=== PATIENT | female | born 1935 | race African-American/Black ===

== ENCOUNTER 2018-03-03 18:54 | Inpatient (IN) | payer OTHER, MEDICARE ==
[~2018-03-03] VITALS: Ht 162.6 cm; Wt 69.9 kg
--- NOTE | 2018-03-03 19:33 | ED NEURO DEFICIT/STROKE ---
History of Present Illness General Chief Complaint: Fall Stated Complaint: BIBA FALL W/? NEURO DEFICITS Source: patient, family (PTS SON, DEAN), EMS Exam Limitations: clinical condition, poor historian Allergies Coded Allergies: Penicillins (Severe, RASH 03/03/18) Triage Note: PT BIBA FROM HOME. PT HAD A WITNESSED FALL AT HOME AT 1400. PT WAS ASSISTED UP FROM THE FLOOR BY HOME HEALTH AID. PT REPORTS R FRONTAL HEADACHE AFTER FALL. PT'S SON REPORTS SHE IS "NOT HERSELF". PA AT BEDSIDE FOR AN EVALUATION ON ARRIVAL. Triage Nurses Notes Reviewed? yes Onset: Afternoon Duration: changing over time, worse persistent since (per her son's opinion) Timing: single episode today New Weakness: LUE Vision Problem? No Impaired Ability: bed-ridden, weak Baseline: alert, oriented x 3 Associated Symptoms: sleepy, weakness LMP (ages 10-50): post menopausal HPI: 83-year-old female presents to the emergency department, brought in by ambulance. Information on patient given by EMS and patient's son, Dean. At approximately 2 PM today patient was residing at home, and the home health aide heard her fall from the other room. The fall was unwitnessed. The home health aide reports that she had walked into the bedroom and found the patient sitting on the floor laying back in between to closet doors that slide open. There were no obstacles witnessed around the area including rug, shoes, or other objects. Patient was not unconscious, she was awake and alert. There was no blood surrounding patient. She was complaining of pain in her upper back and also the right side of her head. After this happened patient was brought to the couch and was watching TV. The home health aide alerted patient's son about the fall and the patient's son came around 4:30 PM. As he was talking with patient he reports that she was slow to answer questions, although she was not slurring her speech, and she did understand her son's questions. She appeared to be a little bit more sluggish than typical. Son reports that patient's baseline is awake alert and oriented. She uses a cane and sometimes a walker to move around. He states that typically she is usually able to answer questions fairly quickly and the condition that he found her in was decreased from her baseline. At this time, the ambulance was called and the patient Was Brought in. Per the son, patient has no history of stroke, heart attack, or syncopal episode in the past. She is a type II diabetic and also has high blood pressure. She is not on any blood thinners. She typically wears dentures but was not wearing them at the time of the fall. (Damián Gentile) Vital Signs & Intake/Output Vital Signs & Intake/Output Vital Signs Date Time Temp Pulse Resp B/P B/P Pulse O2 O2 Flow FiO2 Mean Ox Delivery Rate 03/04 0649 98.7 73 20 156/64 93 Room Air 03/03 2308 Room Air 03/03 2245 98.8 61 14 140/70 92 03/03 2217 97.7 58 18 120/70 96 03/03 1859 97.8 56 16 162/74 97 Room Air ED Intake and Output 03/04 0000 03/03 1200 Intake Total 0 Output Total Balance 0 Intake, Oral 0 Patient 153 lb Weight Weight Bed scale Measurement Method Reconcile Medications Aspirin (Aspirin*) 81 MG TAB.CHEW 81 MG PO DAILY HEART HEALTH Atorvastatin Calcium 40 MG TABLET 40 MG PO 1700 HEART HEALTH Clonazepam 0.5 MG TABLET 1 TAB PO DAILY NEEDED anxiety (Reported) Dexlansoprazole (Dexilant) 60 MG CAP.DRLuisBP 1 CAP PO DAILY GERD (Reported) Metoprolol Tartrate 50 MG TABLET 1 TAB PO BID HTN (Reported) Nifedipine (Nifedipine ER) 30 MG TAB.ER.24 30 MG PO DAILY hypertension Sertraline HCl 50 MG TABLET 1 TAB PO DAILY Anxiety (Reported) (Levon QUINTEROS,Han Strickland) Past History Travel History Traveled to [place] past 21 day No Medical History Any Pertinent Medical History? 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 No (Damián Gentile) Surgical History Surgical History: non-contributory (Levon QUINTEROS,Han Strickland) Review of Systems Review of Systems Constitutional: Reports: see HPI. EENTM: Reports: no symptoms. Respiratory: Reports: no symptoms. Cardiovascular: Reports: no symptoms. GI: Reports: no symptoms. Genitourinary: Reports: no symptoms. Musculoskeletal: Reports: see HPI. Skin: Reports: no symptoms. Neurological/Psychological: Reports: headache, weakness. Hematologic/Endocrine: Reports: no symptoms. Immunologic/Allergic: Reports: no symptoms. All Other Systems: Reviewed and Negative (Damián Gentile) Physical Exam Physical Exam General Appearance: no apparent distress, alert, awake, comfortable Head: atraumatic, normal appearance Eyes: Left: abnormal EOM. Right: EOMI (rightward deviation). Bilateral: normal appearance, PERRL. Ears, Nose, Throat: hearing grossly normal Neck: limited range of motion (per baseline d/t arthritis), no midline tenderness Respiratory: normal breath sounds, chest non-tender, no respiratory distress Cardiovascular: regular rate/rhythm, normal peripheral pulses Gastrointestinal: soft, non-tender Extremities: normal range of motion Psychiatric: awake, alert, oriented x 3 Cranial Nerves: normal hearing, abnormal eye position, abnormal speech, gag reflex in tact, CN function difficult to assess secondary to patient lack of effort Motor/Sensory: 3/5 strength LUE, 5/5 strength RUE, 3/5 strength dorsiflexion of L great toe, no pronator drift appreciated Skin: intact, normal color, warm/dry Core Measures NIH Stroke Scale NIH Stroke Scale Response Value Level of Consciousness alert 0 LOC Questions answers both correctly 0 LOC Commands obeys both correctly 0 Best Gaze partial gaze palsy 1 Visual Duran no visual loss 0 Facial Paresis minor 1 Motor Arm - Left no drift 0 Motor Arm - Right no drift 0 Motor Leg - Left no drift 0 Motor Leg - Right no drift 0 Limb Ataxia no ataxia 0 Sensory normal 0 Best Language mild to moderate aphasia 1 Dysarthria mild/mod slurring words 1 Extinction and Inattention no neglect 0 Total 4 Sepsis Present: No Sepsis Focused Exam Completed? No (Damián Gentile) Core Measures CVA/TIA Diagnosis: Yes Date Last Known Well: 03/03/18 Time Last Known Well: 1400 Symptom Start Date: 03/03/18 Symptom Start Time: 1400 Reason tPA not ordered Medical Contraindication Swallow Evaluation Pass Swallow eval date 03/03/18 Swallow eval time 2100 (Levon QUINTEROS,Han Strickland) Progress Differential Diagnosis: Tapia's Palsy, electrolyte imbalance, encephalitis, hypoglycemia, intracranial Hem., intracranial mass/tumor, seizure disorder, stroke, subarachnoid Hem. Diagnostic Imaging: Viewed by Me: CT Scan. Discussed w/RAD: CT Scan. Initial ED EKG: normal sinus rhythm, rate (56) Hand-Off Endorsed To: Han Dos Santos MD Endorsed Time: 2003 Pending: CT, consult, labs Comments: 03/03/2018 8:01:26 PM Spoke with on-call neurologist Dr. rapp. Due to the unclear time frame patient is not a candidate for TPA at this time. Patient will get a CT angiogram of head and neck. Waiting on those results. (Preston SPEAR,Damián) Plan of Care: Orders Procedure Date/time Status Nothing by Mouth 03/04 B Active TROPONIN LEVEL 03/04 0900 Active EKG 03/04 0900 Active Change service to 03/04 0725 Active LIPID PANEL 03/04 0600 Active GLYCOSYLATED HGB 03/04 0600 Active CBC WITHOUT DIFFERENTIAL 03/04 06 Active BASIC ELECTROLYTES PLUS BUN&CR 03/04 0600 Active ECHOCARDIOGRAM 03/04 0600 Active TROPONIN LEVEL 03/04 0223 Complete EKG 03/04 0223 Active Turn and Reposition 03/04 0219 Active Skin Integrity Protocol 03/04 0219 Active Skin/Pressure Ulcer Assess (Sk 03/04 0219 Active XRY-LUMBAR SPINE ONE VIEW 03/04 UNK Active Change service to 03/04 UNK Active Lab Add-on Test 03/04 UNK Active Wound Care/Dressing 03/04 UNK Active PHYSICIAN CONSULT 03/04 UNK Active Weight 03/03 2252 Active Vital Signs 03/03 225 Active Teach/Educate 03/03 2252 Active Pain Treatment and Response 03/03 2252 Active Nutritional Intake, Monitor 03/03 2252 Active Isolation 03/03 225 Active Intake & Output 03/03 225 Active Patient Care Conference 03/03 2252 Active Activity/Ambulation 03/03 2252 Active Pathway - chart 03/03 2241 Active Pathway - chart 03/03 2240 Active Patient Data 03/03 2146 Active ED Holding Orders 03/03 2144 Active Admit to inpatient 03/03 2144 Active Vital Signs 03/03 2144 Active Code Status 03/03 2144 Active Straight Cath 04/24 2038 Active Intake & Output 03/03 1923 Active URINALYSIS 03/03 1917 Complete TROPONIN LEVEL 03/03 1917 Complete PARTIAL THROMBOPLASTIN TIME 03/03 1917 Complete PROTHROMBIN TIME 03/03 1917 Complete COMPREHENSIVE METABOLIC PANEL 03/03 1917 Complete CREATINE PHOSPHOKINASE 03/03 1917 Complete CBC WITHOUT DIFFERENTIAL 03/03 1917 Complete EKG 03/03 1917 Active TYPE & SCREEN (NOT X-MATCH) 03/03 1917 Complete FingerStick- Glucose 03/03 1909 Active SWALLOW EVALUATION 03/03 UNK Active PT Evaluate & Treat 03/03 UNK Active House Staff 03/03 UNK Active Occupational Tx Eval & Treat 03/03 UNK Active VTE Mechanical Prophylaxis 03/03 UNK Active Telemetry/Parking Cashier 03/03 UNK Active Precautions 03/03 UNK Active NIH Stroke Scale 03/03 UNK Active Activity/Ambulation 03/03 UNK Active Current Medications Sig/Min Start time Last Medication Dose Stop Time Status Admin Atorvastatin Calcium 40 MG 1700 03/04 1700 AC (Lipitor) Heparin Sodium 5,000 UNIT Q8 03/04 0600 AC 03/04 (Porcine) 0545 Sodium Chloride 1,000 ML Q13H 03/04 0100 AC 03/04 (Normal Saline 0.9%) 0159 Acetaminophen 650 MG Q6P PRN 03/03 2245 AC (Tylenol) Laboratory Tests 03/04/18 0647: Sodium Pending, Potassium Pending, Chloride Pending, Carbon Dioxide Pending, Anion Gap Pending, BUN Pending, Creatinine Pending, BUN/Creatinine Ratio Pending , Hemoglobin A1c Pending, Triglycerides Pending, Cholesterol Pending, LDL Cholesterol, Calc Pending, HDL Cholesterol Pending, Cholesterol/HDL Ratio Pending, CBC w Diff Pending, WBC Pending, RBC Pending, Hgb Pending, Hct Pending, MCV Pending, MCH Pending, MCHC Pending, RDW Pending, Plt Count Pending, MPV Pending 03/04/18 0302: Troponin I 0.02 03/03/18 2110: Urine Color YEL, Urine Clarity CLEAR, Urine pH 8.0, Ur Specific [place] 1.025, Urine Protein 100 H, Urine Ketones NEG, Urine Nitrite NEG, Urine Bilirubin NEG, Urine Urobilinogen 0.2, Ur Leukocyte Esterase NEG, Ur Microscopic SEDIMENT EXAMINED, Urine RBC 3-5, Urine WBC RARE, Ur Epithelial Cells FEW, Urine Mucus RARE, Urine Hemoglobin MOD H, Urine Glucose NEG 03/03/181918: Anion Gap 16, Estimated GFR 48 L, BUN/Creatinine Ratio 27.3 H, Glucose 111 H, Calcium 9.9, Total Bilirubin 0.8, AST 33, ALT 28, Alkaline Phosphatase 88, Creatine Kinase 295 H, Troponin I < 0.01, Total Protein 9.3 H, Albumin 5.0, Globulin 4.3 H, Albumin/Globulin Ratio 1.2, PT 12.0, INR 1.10, APTT 27, CBC w Diff NO MAN DIFF REQ, RBC 3.66 L, MCV 87.8, MCH 29.5, MCHC 33.6, RDW 16.6 H, MPV 8.5, Gran % 74.1, Lymphocytes % 11.3 L, Monocytes % 13.0 H, Eosinophils % 1.3, Basophils % 0.3, Absolute Granulocytes 3.3, Absolute Lymphocytes 0.5 L, Absolute Monocytes 0.6, Absolute Eosinophils 0.1, Absolute Basophils 0 Diagnostic Imaging: Viewed by Me: Radiology Read. Discussed w/RAD: Radiology Read. Radiology Impression: PATIENT: LARS ELLIS PRESENT AGE: 83 PATIENT ACCOUNT NO: [id number] : 36 LOCATION: [facility] ORDERING PHYSICIAN: Damián SPEAR SERVICE DATE: 03/03/18 EXAM TYPE : CAT - CT CERV SPINE WO IV CONTRAST; CT HEAD WO IV CONTRAST EXAMINATION: CT OF THE HEAD AND CERVICAL SPINE WITHOUT CONTRAST CLINICAL INFORMATION: FALL, R/O CVA COMPARISON: None. TECHNIQUE: Contiguous axial imaging was performed from the skull base to vertex. Soft tissue and bony algorithms were evaluated. Coronal reformatted images were obtained on the technologist's workstation. Following this, multiple serial thin slice helical CT scan images through the cervical spine were obtained. Soft tissue and bony algorithms were evaluated. Coronal and sagittal reformatted images were obtained on the technologist workstation. DLP: 913 mGy cm FINDINGS: Head CT: The ventricles are normal in size and symmetry. There is no evidence of acute intracranial hemorrhage or territorial infarction. No abnormal mass-effect or midline shift is seen. Parada to white matter differentiation is well preserved. No extra-axial fluid collections are identified. Mild age-related periventricular white matter changes. The osseous structures and soft tissues are normal. The mastoid air cells and visualized portions of the paranasal sinuses are well-aerated. Cervical spine CT: No prevertebral soft tissue swelling is appreciated. Mild straightening of the normal cervical lordosis. Otherwise the bones are in normal anatomic alignment with no acute fracture or spondylolisthesis. Vertebral body heights are preserved. Extensive multilevel degenerative changes are seen with loss of disc height at multiple levels with prominent osteophyte formation more so at 6/7 and C7/T1. Dense sclerotic degenerative changes are seen in the posterior elements. Visualized airway and lung apices are unremarkable. Visualized thyroid gland unremarkable. IMPRESSION: Head CT: Age-related changes but no acute abnormality seen. No intracranial hemorrhage or obvious territorial infarction. C-spine: Extensive multilevel degenerative changes but no acute fracture or spondylolisthesis. DICTATED BY: Иван Iniguez MD DATE/TIME DICTATED:2010 [facility] UNDERWRITER:BONNIE DATE/TIME TRANSCRIBED:03/03/182010 CONFIDENTIAL, DO NOT COPY WITHOUT APPROPRIATE AUTHORIZATION. <Electronically signed in Other Vendor System> SIGNED BY: Иван Iniguez MD 03/03/182019 (Levon QUINTEROS,Han Strickland) Departure Departure Condition: Stable Departure Forms: Customer Survey General Discharge Information (Damián Gentile) Departure Disposition: STILL A PATIENT Clinical Impression Primary Impression: TIA (transient ischemic attack) Prescriptions: Current Visit Scripts Atorvastatin Calcium 40 MG PO 1700 #30 TAB Aspirin (Aspirin*) 81 MG PO DAILY #30 TAB Nifedipine (Nifedipine ER) 30 MG PO DAILY #30 TAB Admission Note Spoke With: Cassie Lopez MD Documentation of Exam: Documentation of any treatments & extenuating circumstances including Concerns Regarding Discharge (functional status, medication knowledge or non-compliance, living conditions, etc.) that warrant an admission rather than observation: [IV hydration, family states that the last time she had symptoms similar to this she was dehydrated, neurology consultation, physical therapy consultation, telemetry monitoring to evaluate for potential dysrhythmia] PA/EPIDEMIOLOGY INVESTIGATOR Co-Sign Statement Statement: ED Attending supervision documentation- [X] I saw and evaluated the patient. I have also reviewed all the pertinent lab results and diagnostic results. I agree with the findings and the plan of care as documented in the PA's/EPIDEMIOLOGY INVESTIGATOR's documentation. [X] I have reviewed the ED Record and agree with the PA's/EPIDEMIOLOGY INVESTIGATOR's documentation. [] Additions or exceptions (if any) to the PAs/EPIDEMIOLOGY INVESTIGATOR's note and plan are summarized below: [See above note] (Levon QUINTEROS,Han Strickland) ED Attending Observation Initial Observation Note: I have seen and personally examined LARS ELLIS on 03/03/18 at 2000. I agree with the current emergency department documentation. The disposition (admission or discharge) is uncertain at this time, she needs a period of observation for the following reason(s): The ED Nurse caring for this patient has been personally informed as to what the patient is being observed for. (Preston SPEAR,Damián)
[2018-03-03 19:46] LABS: ABSOLUTE BASOPHIL COUNT 0 /CUMM (0.0-0.2); ABSOLUTE EOSINOPHIL COUNT 0.1 /CUMM (0.0-0.7); ABSOLUTE GRANULOCYTE CT 3.3 /CUMM (1.4-6.5); ABSOLUTE LYMPH COUNT 0.5 /CUMM (1.2-3.4); ABSOLUTE MONOCYTE COUNT 0.6 /CUMM (0.10-0.60); BASOPHIL % 0.3 % (0.0-2.0); EOSINOPHIL % 1.3 % (0-5); GRANULOCYTE % 74.1 % (42.2-75.2); HEMATOCRIT 32.1 % (37-47); MEAN CORPUSCULAR HGB 29.5 PG (27.0-31.0); MEAN CORPUSCULAR HGB CONC 33.6 G/DL (33.0-37.0); MEAN CORPUSCULAR VOLUME 87.8 FL (81.0-99.0); MEAN PLATELET VOLUME 8.5 FL (7.4-10.4); PLATELET COUNT 139 /CUMM (130-400); RBC DISTRIBUTION WIDTH 16.6 % (11.5-14.5); RED BLOOD CELL CT 3.66 /CUMM (4.20-5.40); WHITE BLOOD CELL COUNT 4.4 /CUMM (4.8-10.8)
[2018-03-03 19:49] LABS: PTT 27 SEC (25-37)
--- NOTE | 2018-03-03 20:20 | CT SCAN REPORT ---
EXAMINATION: CT OF THE HEAD AND CERVICAL SPINE WITHOUT CONTRAST CLINICAL INFORMATION: FALL, R/O CVA COMPARISON: None. TECHNIQUE: Contiguous axial imaging was performed from the skull base to vertex. Soft tissue and bony algorithms were evaluated. Coronal reformatted images were obtained on the technologist's workstation. Following this, multiple serial thin slice helical CT scan images through the cervical spine were obtained. Soft tissue and bony algorithms were evaluated. Coronal and sagittal reformatted images were obtained on the technologist workstation. DLP: 913 mGy cm FINDINGS: Head CT: The ventricles are normal in size and symmetry. There is no evidence of acute intracranial hemorrhage or territorial infarction. No abnormal mass-effect or midline shift is seen. Parada to white matter differentiation is well preserved. No extra-axial fluid collections are identified. Mild age-related periventricular white matter changes. The osseous structures and soft tissues are normal. The mastoid air cells and visualized portions of the paranasal sinuses are well-aerated. Cervical spine CT: No prevertebral soft tissue swelling is appreciated. Mild straightening of the normal cervical lordosis. Otherwise the bones are in normal anatomic alignment with no acute fracture or spondylolisthesis. Vertebral body heights are preserved. Extensive multilevel degenerative changes are seen with loss of disc height at multiple levels with prominent osteophyte formation more so at 6/7 and C7/T1. Dense sclerotic degenerative changes are seen in the posterior elements. Visualized airway and lung apices are unremarkable. Visualized thyroid gland unremarkable. IMPRESSION: Head CT: Age-related changes but no acute abnormality seen. No intracranial hemorrhage or obvious territorial infarction. C-spine: Extensive multilevel degenerative changes but no acute fracture or spondylolisthesis.
--- NOTE | 2018-03-03 20:39 | CT SCAN REPORT ---
EXAMINATION: CT ANGIOGRAM NECK WITH CONTRAST CT ANGIOGRAM BRAIN WITH CONTRAST CLINICAL INFORMATION: Left arm weakness to rule out occlusion COMPARISON: Head CT performed earlier the same day. TECHNIQUE: Test bolus sequences followed by intravenous administration 95 mL of Optiray 320. Helical imaging was performed in the axial plane from the thoracic inlet to the skull vertex. Delayed postcontrast imaging of the head was also performed. The data was processed at the lab animal technologist workstation for generation of MIP sequences. Angled MIPs and volume rendered reformatted images were also generated at an offline 3D workstation. Stenoses are assessed in accordance with NASCET criteria unless otherwise indicated. FINDINGS: BRAIN: hemorrhage, hydrocephalus, extra-axial surface collection, midline shift, or other herniation pattern. Parada to white matter differentiation is diffusely maintained without evidence of an evolved acute territorial infarct. The basilar cisterns are preserved. No significant soft tissue abnormality. No acute osseous abnormality. The paranasal sinuses and the mastoid air cells are well-aerated. CERVICAL SOFT TISSUES AND LUNG APICES: No significant soft tissue findings within the neck. The imaged upper lungs are clear. Advanced cervical spondylosis. 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 Left-sided uncovertebral joint hypertrophy and hypertrophic facet arthropathy result in severe left-sided bony foraminal stenosis at C5-C6 and C6-C7. There is also severe right-sided bony foraminal stenosis at C3-C4, C4-C5 and C6-C7. NECK CTA: There is a classic 3 vessel configuration of the aortic arch. Proximal arch vessels are non-stenotic. The vertebral arteries are codominant. No significant ostial stenosis is visualized on either side. Both vertebral arteries are widely patent throughout their extracranial cervical course. Both common and internal carotid arteries are normal in course and caliber. There is mild atherosclerotic calcification of the carotid bifurcations bilaterally without significant stenosis. BRAIN CTA: There is normal opacification of major intracranial arteries. No focal flow-limiting stenosis, discrete proximal large artery occlusion, or saccular intradural aneurysm is identified. Timing of the contrast bolus allows assessment of the major dural venous sinuses, which all opacify normally. IMPRESSION: - No acute arterial occlusions and no significant arterial stenoses within the head or neck. - No acute intracranial findings. - Advanced cervical spondylosis. 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 Left-sided uncovertebral joint hypertrophy and hypertrophic facet arthropathy result in severe left-sided bony foraminal stenosis at C5-C6 and C6-C7. There is also severe right-sided bony foraminal stenosis at C3-C4, C4-C5 and C6-C7. Findings discussed with Dr. Gonzalez at 8:30 PM on 03/03/2018.
--- NOTE | 2018-03-03 21:53 | History & Physical ---
Nicole Gomez MD 03/03/18 2106: General Information and HPI MD Statement: I have seen and personally examined LARS GUTIERREZ and documented this H&P. The patient is a 83 year old F who presented with a patient stated chief complaint of [unwitnessed fall, confusion]. Source of Information: patient, family, EMS Exam Limitations: not alert/orientated, confusion History of Present Illness: Patient is an 83-year-old female with past medical history of hypertension, hyperlipidemia, diabetes, urinary incontinence, arthritis, ankylosing spondylitis who was brought in by ambulance to the [place] ED from home after having an unwitnessed fall. Patient was drowsy and confused on interview. Majority of the history was obtained from patient's son whom she lives with and medical record. It was reported that patient today at approximately 2 PM this afternoon patient was in her room when she had an unwitnessed fall. Patient states that she does not remember exactly what happened however believes that she was standing up at that time and attempting to change her clothes. The fall was heard by her home health aide who reports that when she walked into the bedroom she found the patient sitting on the floor between 2 closet doors. Reportedly no objects were near the patient that she may have tripped on. Patient reports that she hit her head however denies any loss of consciousness. No loss of bed noted. Patient complained of upper back and right sided head pain. Patient was then moved to couch. Patient's son was informed of the event and he came to check on the patient at [facility] 4:30PM at which time he noted that the patient was below her baseline and was responding slowly to questions. Denies slurred speech , facial droop, seizure like activity. Patient currently denies chest pain, palpitations, lightheadedness, dizzinessness, visual disturbances. Per son, patient has not had a stroke/TIA in the patst. PMH: HTN, DM (patient reports she is not on any meds currently), Arthritis, HLD PSH: SH: patient lives with her son, uses a cane/walker to ambulate (limited ambulation due to arthritis), has 24 hour home nursing care, former smoker (quit 6-7 years ago) Allergies/Medications Home Med list Aspirin (Aspirin*) 81 MG TAB.CHEW 81 MG PO DAILY [facility] Atorvastatin Calcium 40 MG TABLET 40 MG PO 1700 [facility]ART [facility] Clonazepam 0.5 MG TABLET 1 TAB PO DAILY NEEDED anxiety (Reported) Dexlansoprazole (Dexilant) 60 MG JAMES.BP 1 CAP PO DAILY GERD (Reported) Metoprolol Tartrate 50 MG TABLET 1 TAB PO BID HTN (Reported) Nifedipine (Nifedipine ER) 30 MG TAB.ER.24 30 MG PO DAILY hypertension Sertraline HCl 50 MG TABLET 1 TAB PO DAILY Anxiety (Reported) Past History Travel History Traveled to [place] past 21 day No Medical History Neurological: NONE EENT: NONE, dentures Cardiovascular: hypertension, hyperlipidemia Respiratory: NONE Gastrointestinal: GERD Hepatic: NONE Renal: urinary incontinence Musculoskeletal: ARTHRITIS per son 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 Home Review of Systems Review of Systems Constitutional: Reports: see HPI (limited due to clinical state), weakness. EENTM: Reports: no symptoms. Cardiovascular: Reports: no symptoms. Respiratory: Reports: no symptoms. GI: Reports: no symptoms. Genitourinary: Reports: no symptoms. Musculoskeletal: Reports: back pain. Neurological/Psychological: Reports: weakness. Exam & Diagnostic Data Last 24 Hrs of Vital Signs/I&O Vital Signs Date Time Temp Pulse Resp B/P B/P Pulse O2 O2 Flow FiO2 Mean Ox Delivery Rate 03/03 2308 Room Air 03/03 2245 98.8 61 14 140/70 92 03/03 2217 97.7 58 18 120/70 96 03/03 1859 97.8 56 16 162/74 97 Room Air Intake & Output 03/04 0800 03/04 0000 03/03 1600 Intake Total 0 Output Total Balance 0 Intake, Oral 0 Patient 153 lb Weight Weight Bed scale Measurement Method Physical Exam General Appearance Cooperative, drowsy, oriented x 2, to person and place Skin tear along gluteal cleft Skin Temp/Moisture Exam: Warm/Dry Sepsis Skin Exam (color): Normal for Ethnicity HEENT Atraumatic, PERRLA, EOMI, Mucous Membr. moist/pink Neck Supple, No JVD, +2 Carotid Pulse wo Bruit Cardiovascular Regular Rate, Normal S1, Normal S2, No Murmurs Lungs Clear to Auscultation, Normal Air Movement Abdomen Normal Bowel Sounds, Soft, No Tenderness Neurological Normal Speech, Normal Tone, Sensation Intact, Cranial Nerves 3-12 NL, strength in left upper extremity and left lowe extremity 4/5, [id number] test - slow Extremities No Clubbing, No Cyanosis, No Edema, Normal Pulses, No Tenderness/ Swelling Last 24 Hrs of Labs/Zachery: Laboratory Tests 03/03/182109: Urine Color YEL, Urine Clarity CLEAR, Urine pH 8.0, Ur Specific [place] 1.025, Urine Protein 100 H, Urine Ketones NEG, Urine Nitrite NEG, Urine Bilirubin NEG, Urine Urobilinogen 0.2, Ur Leukocyte Esterase NEG, Ur Microscopic SEDIMENT EXAMINED, Urine RBC 3-5, Urine WBC RARE, Ur Epithelial Cells FEW, Urine Mucus RARE, Urine Hemoglobin MOD H, Urine Glucose NEG 03/03/18 1919: Anion Gap 16, Estimated GFR 48 L, BUN/Creatinine Ratio 27.3 H, Glucose 111 H, Calcium 9.9, Total Bilirubin 0.8, AST 33, ALT 28, Alkaline Phosphatase 88, Creatine Kinase 295 H, Troponin I < 0.01, Total Protein 9.3 H, Albumin 5.0, Globulin 4.3 H, Albumin/Globulin Ratio 1.2, PT 12.0, INR 1.10, APTT 27, CBC w Diff NO MAN DIFF REQ, RBC 3.66 L, MCV 87.8, MCH 29.5, MCHC 33.6, RDW 16.6 H, MPV 8.5, Gran % 74.1, Lymphocytes % 11.3 L, Monocytes % 13.0 H, Eosinophils % 1.3, Basophils % 0.3, Absolute Granulocytes 3.3, Absolute Lymphocytes 0.5 L, Absolute Monocytes 0.6, Absolute Eosinophils 0.1, Absolute Basophils 0 Diagnostic Data CXR Results No evidence of acute disease. Other Results Head CT: Age-related changes but no acute abnormality seen. No intracranial hemorrhage or obvious territorial infarction. C-spine: Extensive multilevel degenerative changes but no acute fracture or spondylolisthesis. Head and Neck CTA: - No acute arterial occlusions and no significant arterial stenoses within the head or neck. - No acute intracranial findings. - Advanced cervical spondylosis. 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 Left-sided uncovertebral joint hypertrophy and hypertrophic facet arthropathy result in severe left-sided bony foraminal stenosis at C5-C6 and C6-C7. There is also severe right-sided bony foraminal stenosis at C3-C4, C4-C5 and C6-C7. Assessment/Plan Assessment: Patient is an 83-year-old female with past medical history of hypertension, hyperlipidemia, diabetes, urinary incontinence, arthritis, ankylosing spondylitis who was brought in by ambulance to the [place] ED from home after having an unwitnessed fall. Patient will be admitted to the telemetry unit for management of followin. Suspected CVA/TIA * Monitor on telemetry * Neurochecks q4h * Serial EKG and troponins * Echocardiogram * MRI in a.m. * PT/OT evaluation * Formal swallow evaluation (patient passed bedside swallow) * Lipid profile in a.m. * Continue aspirin * High-dose statin * Neuro consult 2. Unwitnessed Fall * montior on telemetry * ECHO * Fall precautions * PT/OT * Wound consult for gluteal cleft superficial injury 3. Dehydration BUN: 30, Cr: 1.1 (no baseliine to compare available) * Gentle IV hydration with IV NS @75cc/hr * Repeat BUN/Cr in AM Chronic conditions: DM, HTN, HLD, Urinary Incontinence * Patient's son will bring medication list in AM * hold losartan for now DVT: HEparin SQ Code: Full code Diet: NPO As Ranked By This Provider Problem List: 1. TIA (transient ischemic attack) 2. Unwitnessed fall Core Measures/Misc (07/27) Acute Coronary Syndrome ACS Diagnosis: No Congestive Heart Failure Congestive Heart Failure Diagnosis No Cerebrovascular Accident CVA/TIA Diagnosis: Yes Date Last Known Well: 03/03/18 Time Last Known Well: 1400 Symptom Start Date: 03/03/18 Symptom Start Time: 1400 Swallow Evaluation Pass VTE (View Protocol) VTE Risk Factors Age>40 No Mechanical VTE Prophylaxis d/t N/A MechProphylax Ordered No VTE Pharm Prophylaxis d/t NA PharmProphylax ordered Sepsis (View protocol) Sepsis Present: No Albalwai,Afaf 03/04/18 0053: General Information and HPI Allergies/Medications Allergies: Coded Allergies: Penicillins (Severe, RASH 03/03/18) Resident Review Statement Resident Statement: examined this patient, discussed with creative services intern, agreed with creative services intern, discussed with family, reviewed EMR data (avail), discussed with nursing , discussed with case mgmt, reviewed images Other Findings: Mrs. Gutierrez is an 83 yo women with PMHx. of HTN, DM, Arthritis presented to ED with a c/o incoherent, slow after unwittnessed fall, found on the floor with a head trauma reported. Detailed Hx. as above. Vitals, examination, labs and imaging as above. Will admitt the patient to telemetry, SERIAL TROPONIN AND ekg, MRI head, pelvic x-ray, lipid profile, ASA, statin, serial neurochecks, echocardiogram, gentle hydration, neurology consult, pt/ot/ official swallow evaluation. Please confirm medications list. DVT ppx. SC heparin, FC Cassie Lopez 03/04/18 0057: Attending MD Review Statement Attending Statement Attending MD Statement: examined this patient, discuss w/resident/PA/CERAMIC RESTORER, agreed w/resident/PA/CERAMIC RESTORER, reviewed EMR data (avail), reviewed images, amended to note Attending Assessment/Plan: CC: Fall PMH: DM : Currently not on medications, arthritis, HTN, HLD Patient was brought in ER through EMS for not being herself after the fall. Patient had healthcare aide at home she heard a bang on the floor, then she found patient lying on the floor near closet. She may have hit her head, she complains of right-sided pain. Patient does not recall the fall, and it was unwitnessed. History is mostly obtained from patient's son. Health aide helped her to the living room and patient was sitting on the couch for some time and son came back home and saw that patient was not herself, still low and sluggish to respond, incoherent so he decided to call EMS. Currently patient does not endorse any complaint other than mild headache on the right side. There is no history of loss of consciousness or seizure-like activity, no open wounds. Patient states that she has not been ambulating much around the house, probably secondary to arthritis, she uses walker. According to son similar episode happened to her in the past when she was evaluated in hospital and it was found out that she was dehydrated. This time some of the health aide did not notice any neurological weakness or slurred speech. Vitals: Afebrile, t 97.8, pulse 56, RR 16, blood pressure 162/74, saturating 97% on room air. On exam: Slow and sluggish to respond, responds appropriately, alert, oriented in person, always that she is in hospital but does not recall the name, not oriented in time, follows all instructions, pupils equal round reactive bilaterally, no nystagmus, no neglect or gaze abnormality, cranial nerves intact , left upper extremity strength 4/5, slow for cerebellar reflexes on the left side but no obvious past-pointing or tremors, left lower extremity strength is 4 +/5 as compared to right lower extremity, normal strength right upper extremity, sensory exam unremarkable. Cooperative, no acute distress, neck supple, JVD normal, no lymphadenopathy, mucosa dry, no dependent edema, no obvious skin rashes or inflammation CVS: S1-S2, RRR. RS: Clear to auscultate bilaterally. Abdomen: Soft, NT, ND, bowel sounds present. Laceration in interagluteal fold, minimal bleeding. No evidence of infection CT head without IV contrast, CT cervical spine Age-related changes but no acute abnormality seen. No intracranial hemorrhage or obvious territorial infarction. Extensive multilevel degenerative changes but no acute fracture or spondylolisthesis. CTA head and neck - No acute arterial occlusions and no significant arterial stenoses within the head or neck. - No acute intracranial findings. - Advanced cervical spondylosis. Assessment and plan 83-year-old female was brought in ER after being slow and sluggish the recent unwitnessed fall. Healthcare aide noticed a bang, when she went to check on patient she was on the floor, no loss of consciousness, no seizure-like activity , she hit her head on the right side. Aide did not notice any neurological weakness, no slurred speech and she helped to sit her on the couch for some time , when son came home he saw patient being more sluggish, slow to respond, confused so she was brought in ER. No obvious neurological weakness was noticed by some either, speech was slower than her usual not slurred. In ER she was found to have left upper extremity weakness, unknown duration 4/[address] does not show any acute stroke or occlusive thrombus but lacking or strokes cannot be excluded. Patient's symptoms could be secondary to dehydration as well. We will consult neurology, MRI is suggested by them, get CVA workup. Patient's medications need to be confirmed in the morning. Patient has urinary incontinence. She has buttock wound in the gluteal fold, minimally bleeding, no evidence of infection + Suspected CVA + Dehydration + Fall - Admit to telemetry - Continuous telemetry monitoring - Serial troponin and EKG - MRI brain if suggested by neurology - 2-D echocardiogram in a.m. - DVT prophylaxis - Obtain lipid profile - Continue aspirin 81 daily and atorvastatin 40 mg daily - Neurology consult - Serial neuro checks - OT PT evaluation - Continue gentle hydration normal saline at 75 mL per hour - Hold losartan, metoprolol (her home medications, need to confirm in the morning and restart if no acute stroke) - Check HbA1c - Wound care consult
--- NOTE | 2018-03-03 22:17 | RADIOLOGY REPORT ---
EXAMINATION: PORTABLE CHEST 1 VIEW CLINICAL INFORMATION: Pneumonia. Short of breath.. COMPARISON: No recent pertinent prior studies are available for comparison. TECHNIQUE: Portable frontal view of the chest was obtained. FINDINGS: The lungs are well expanded. No focal infiltrate, effusion, edema, or pneumothorax. Cardiac and mediastinal silhouettes are within normal limits for technique. No acute bony abnormality seen. Degenerative changes in the spine and shoulders. IMPRESSION: No evidence of acute disease.
[2018-03-03 22:45] VITALS: BP 140/70
--- NOTE | 2018-03-04 00:58 | Admission Certification ---
Admission Certification Certification Statement - As attending physician, I certify that at the time of - admission, based on clinical presentation, severity of - symptoms, need for further diagnostic testing and - therapeutic interventions, and risk of adverse outcomes - without in-hospital treatment, in my clinical assessment, - this patient requires an acute hospital stay for a minimum - of two nights or longer. I have also considered psychsocial - factors such as support system, advanced age, financial - issues, cognitive issues, and failed out-patient treatments, - past re-admission history, safety of patient, and lack of - compliance as applicable. Specific rationale supporting this admission is: CVA
[2018-03-04 06:49] VITALS: BP 156/64
--- NOTE | 2018-03-04 07:50 | PN- Housestaff ---
Subjective Follow-up For: Fall C spine fracture Tele-Events Since Last Visit: Normal sinus rhythm HR 60s-70s Subjective: Patient was seen and examined at that time. She was resting in bed. She had no acute events overnight. She is complaining of neck stiffness and neck pain. Although she is slow to answer questions she does respond appropriately. She has no other complaints, and denies any headaches, tingling, numbness, chest pain, shortness of breath. Review of Systems Constitutional: Reports: no symptoms. EENTM: Reports: no symptoms. Cardiovascular: Reports: no symptoms. Respiratory: Reports: no symptoms. Gastrointestinal: Reports: no symptoms. Genitourinary: Reports: no symptoms. Musculoskeletal: Reports: neck pain. Skin: Reports: no symptoms. Objective Last 24 Hrs of Vital Signs/I&O Vital Signs Date Time Temp Pulse Resp B/P B/P Pulse O2 O2 Flow FiO2 Mean Ox Delivery Rate 03/04 0649 98.7 73 20 156/64 93 Room Air 03/03 2308 Room Air 03/03 2245 98.8 61 14 140/70 92 03/03 2217 97.7 58 18 120/70 96 03/03 1859 97.8 56 16 162/74 97 Room Air Intake & Output 03/04 0800 03/04 0000 03/03 1600 Intake Total 300 0 Output Total Balance 300 0 Intake, IV 300 Intake, Oral 0 Patient 153 lb Weight Weight Bed scale Measurement Method Physical Exam General Appearance: Alert, Cooperative, No Acute Distress, oriented to person and place but not time Skin: long superficial abrasion on the lower back extending into the gluteal cleft Skin Temp/Moisture Exam: Warm/Dry Sepsis Skin Exam (color): Normal for Ethnicity Neck: tender to palpation, limited range of motion Cardiovascular: Regular Rate, Normal S1, Normal S2 Lungs: Clear to Auscultation, Normal Air Movement Abdomen: Normal Bowel Sounds, Soft, No Tenderness Neurological: LUE 4+/5 strength, RLE 4/5 however this is chronic Extremities: No Clubbing, No Cyanosis, No Edema Current Medications: Current Medications Sig/Min Start time Last Medication Dose Route Stop Time Status Admin Acetaminophen 650 MG Q6P PRN 03/03 224 AC PO Aspirin 325 MG ONCE ONE 03/03 2145 DC PO 03/03 2146 Atorvastatin Calcium 40 MG 1700 03/04 1700 AC PO Heparin Sodium 5,000 UNIT Q8 03/04 0600 AC 03/04 (Porcine) [place] 0545 Ondansetron HCl 0 .STK-MED ONE 03/03 2107 DC .ROUTE Ondansetron HCl 4 MG ONCE ONE 03/03 2100 DC 03/03 IV 03/03 Sodium Chloride 1,000 ML Q13H 03/04 0100 AC 03/04 IV 0159 Sodium Chloride 1,000 ML BOLUS ONE 03/03 2100 DC 03/03 IV 03/03 Last 24 Hrs of Lab/Zachery Results Last 24 Hrs of Labs/Mics: Laboratory Tests 03/04/18 0950: Troponin I 0.02 03/04/18 0647: Anion Gap 15, Estimated GFR 39 L, BUN/Creatinine Ratio 20.8, Hemoglobin A1c 5.0 , Triglycerides 67, Cholesterol 192, LDL Cholesterol, Calc 91, HDL Cholesterol 88 H, Cholesterol/HDL Ratio 2, CBC w Diff NO MAN DIFF REQ, RBC 3.05 L, MCV 87.8, MCH 30.3, MCHC 34.5, RDW 16.1 H, MPV 8.9, Gran % 69.9, Lymphocytes % 10.6 L, Monocytes % 17.9 H, Eosinophils % 1.4, Basophils % 0.2, Absolute Granulocytes 4.1, Absolute Lymphocytes 0.6 L, Absolute Monocytes 1.0 H, Absolute Eosinophils 0.1, Absolute Basophils 0 03/04/18 0302: Troponin I 0.02 03/03/182109: Urine Color YEL, Urine Clarity CLEAR, Urine pH 8.0, Ur Specific [place] 1.025, Urine Protein 100 H, Urine Ketones NEG, Urine Nitrite NEG, Urine Bilirubin NEG, Urine Urobilinogen 0.2, Ur Leukocyte Esterase NEG, Ur Microscopic SEDIMENT EXAMINED, Urine RBC 3-5, Urine WBC RARE, Ur Epithelial Cells FEW, Urine Mucus RARE, Urine Hemoglobin MOD H, Urine Glucose NEG 03/03/18 1919: Anion Gap 16, Estimated GFR 48 L, BUN/Creatinine Ratio 27.3 H, Glucose 111 H, Calcium 9.9, Total Bilirubin 0.8, AST 33, ALT 28, Alkaline Phosphatase 88, Creatine Kinase 295 H, Troponin I < 0.01, Total Protein 9.3 H, Albumin 5.0, Globulin 4.3 H, Albumin/Globulin Ratio 1.2, PT 12.0, INR 1.10, APTT 27, CBC w Diff NO MAN DIFF REQ, RBC 3.66 L, MCV 87.8, MCH 29.5, MCHC 33.6, RDW 16.6 H, MPV 8.5, Gran % 74.1, Lymphocytes % 11.3 L, Monocytes % 13.0 H, Eosinophils % 1.3, Basophils % 0.3, Absolute Granulocytes 3.3, Absolute Lymphocytes 0.5 L, Absolute Monocytes 0.6, Absolute Eosinophils 0.1, Absolute Basophils 0 Orders Radiology Findings: Head and cervical neck MRI BRAIN MRI: There is no hydrocephalus, extra-axial surface collection, or herniation. There are T2 signal changes throughout the supratentorial white matter and central kosta, most likely moderate chronic microangiopathy. The major flow voids at the skull base are preserved. There is no acute infarct on diffusion-weighted imaging. There is no intracranial hemorrhage on the gradient recalled echo acquisition. The midline structures are normal. The cerebellar tonsils are normally positioned. The cerebellum and brainstem are normal. The craniocervical junction is normal. Osseous marrow signal intensity is homogenous. The visualized soft tissues are unremarkable. CERVICAL SPINE MRI: There is prevertebral/retropharyngeal edema extending from the C2 level through the imaged upper thoracic spine. Suspected disc contiguity of the anterior longitudinal ligament at C6-C7. Possible fracture through an anterior bridging osteophyte at C6-C7 that is better demonstrated on MRI. There is fluid signal within the intervertebral disc at C6-C7 which could indicate traumatic disc injury. The posterior longitudinal ligament and ligamentum flavum appear intact. There is interspinous ligamentous injury at C5-C6. Craniocervical junction is intact. There are edema within the right C3 and C4 facets is most likely inflammatory. Mild degenerative appearing anterior subluxation of C7 on T1. Right-sided facet fusion at the C3-C5 levels. C2-C3: Disc contour is normal. No central canal stenosis and no foraminal stenosis. C3-C4: Severe right-sided hypertrophic facet arthropathy along with uncovertebral joint spurring results in severe right foraminal stenosis. Uncovertebral joint spurring results in mild left foraminal narrowing. Central canal remains patent. C4-C5: Disc osteophyte complex mildly indents the ventral thecal sac without central canal stenosis. Bilateral uncovertebral joint spurring and hypertrophic facet arthropathy resulting in moderate right-sided foraminal stenosis. C5-C6: Disc osteophyte complex that is eccentric to the left side and ossification of the posterior longitudinal ligament on the left results in moderate to severe central canal stenosis on the left and flattening of the ventral cord. Left greater than right uncovertebral joint hypertrophy and hypertrophic facet arthropathy with severe left and mild right foraminal stenosis. C6-C7: Traumatic findings as discussed above. Anteriorly extruded disc material on the left side. There is a diffuse disc osteophyte complex that is eccentric to the left side and there is ossification of the posterior longitudinal ligament on the left resulting in mass effect on the cord and moderate to severe left-sided central canal stenosis. Uncovertebral joint spurring and hypertrophic facet arthropathy result in severe bilateral foraminal stenosis. C7-T1: Mild anterior subluxation the setting of bilateral hypertrophic facet arthropathy. No central canal stenosis and no foraminal stenosis. IMPRESSION: - There is prevertebral/retropharyngeal soft tissue edema extending from the C2 level through the imaged upper thoracic spine that is most likely posttraumatic in the absence of clinical signs of infection. Suspected disruption of the anterior longitudinal ligament and intervertebral disc traumatic injury at C6-C7 with mild widening of the anterior disc space and anteriorly extruding disc material. The posterior longitudinal ligament and ligamentum flavum appear intact. There is interspinous ligamentous injury at C5-C6. Possible fracture through an anterior bridging osteophyte at C6-C7 that is better demonstrated on MRI. - Ossification of the posterior longitudinal ligament and multifactorial degenerative changes result in moderate to severe left-sided central canal stenosis and mass effect on the cervical cord at the C5-C6 and C6-C7 levels. Nondiagnostic assessment for cord signal changes given the degree of artifact. Varying degrees of moderate to severe foraminal stenosis throughout the cervical spine as discussed above. - No acute intracranial findings. No acute infarcts. There is moderate chronic microangiopathy throughout the supratentorial white matter and kosta. Pelvis and lumbar spine XR LUMBOSACRAL SPINE: The height of the lumbar vertebrae are well maintained. Decreased disc height, endplate osteophyte formations, consistent with multilevel moderate degenerative spondylosis-related changes are noted within the lumbar spine. Grade 1 anterolisthesis of L4 over L5 is noted. Incidental note is made of right-sided iliolumbar ligament ossification. Note is also made of contrast-filled urinary bladder likely from intravenous contrast injected at the time of the prior CT angiogram of the neck and brain. PELVIS: The bony alignment is intact. The cortices are intact. The soft tissues are unremarkable. IMPRESSION: 1. No radiographic evidence of any vertebral body fracture identified. 2. Grade 1 anterolisthesis of L4 over L5 vertebral body and multilevel degenerative spondylosis-related changes are present. 3. No radiographic evidence of any displaced pelvic fracture. Assessment/Plan Assessment: Patient is an 83-year-old female with PMH significant for HTN, HLD, diabetes not currently medically managed, urinary incontinence, osteoarthritis, ankylosing spondylitis who was brought in to [facility] in ED by ambulance after suffering an unwitnessed fall. On presentation she had left upper extremity weakness. #Unwitnessed fall with C6C7 osteophyte fracture She was not seen on initial CT performed in the ED. MRI of the head and C-spine was obtained to rule out stroke and further assess patient's neck pain. At that time it was noted that is unlikely actually anterior bridging osteophyte at C6- C7 level. At this time the covering neurosurgeon, Dr. Castillo, was called and she reviewed the images. She recommended neck immobilization with a hard cervical collar, her specific recommendations were an [place] Collar, and outpatient follow-up with serial imaging. There is no acute surgical need at this time. -Keep her neck in a hard cervical collar for 68 weeks - Prior to discovery of the fracture speech therapy cleared the patient for mechanical soft and regular thin liquids -Will have speech therapy see the patient tomorrow to reassess while wearing the collar for dietary recommendations -Physical therapy and occupational therapy are commending short-term rehabilitation -Neurology was consulted to have low suspicion for a stroke and MRI shows no evidence of infarct -Continue aspirin, statin - follow-up echo #Anemia Small drop in H/H, possibly dilutional. -Will follow-up CBC in a.m. #Superficial wounds on the lower back/gluteal cleft Wound care consult obtained -Offload as much as possible -Treat with barrier cream #SERENE Mild increase in creatinine today from 1.1-1.3, no previous records to know baseline. Patient received IV hydration while nothing by mouth, she is not cleared for an diet. -Will discontinue IV fluids and recheck BEP tomorrow #Chronic medical problems including anxiety, DM, and hypertension -Continue home medications -HgbA1c 5.0 Diet: Heart healthy mechanical soft and thin liquids DVT prophylaxis: Subcutaneous heparin, pounds CODE STATUS: Full code Problem List: 1. Unwitnessed fall 2. Cervical spine fracture Pain Ratin Pain Location: neck, lower back Pain Goal: Pain 4 or less Pain Plan: pain pathway Tomorrow's Labs & Rationales: bep, cbc
[2018-03-04 08:55] LABS: ABSOLUTE BASOPHIL COUNT 0 /CUMM (0.0-0.2); ABSOLUTE EOSINOPHIL COUNT 0.1 /CUMM (0.0-0.7); ABSOLUTE GRANULOCYTE CT 4.1 /CUMM (1.4-6.5); ABSOLUTE LYMPH COUNT 0.6 /CUMM (1.2-3.4); BASOPHIL % 0.2 % (0.0-2.0); EOSINOPHIL % 1.4 % (0-5); GRANULOCYTE % 69.9 % (42.2-75.2); MEAN CORPUSCULAR HGB 30.3 PG (27.0-31.0); MEAN CORPUSCULAR HGB CONC 34.5 G/DL (33.0-37.0); MEAN CORPUSCULAR VOLUME 87.8 FL (81.0-99.0); MEAN PLATELET VOLUME 8.9 FL (7.4-10.4); PLATELET COUNT 138 /CUMM (130-400); RBC DISTRIBUTION WIDTH 16.1 % (11.5-14.5); RED BLOOD CELL CT 3.05 /CUMM (4.20-5.40); WHITE BLOOD CELL COUNT 5.8 /CUMM (4.8-10.8)
[2018-03-04 09:32] LABS: HEMATOCRIT 26.8 % (37-47)
[2018-03-04] MEDS ORDERED: CLONAZEPAM0.5 M2 PO (10:08)
--- NOTE | 2018-03-04 10:30 | PN- Att Addend ---
Attending Addendum Attending Brief Note Patient seen and examined. Plan of care discussed with the medical team and the patient. Available lab work and radiology test reports were reviewed. Patient' s son is at the bedside. Patient appears weak and lethargic but she is currently awake but disoriented. He has trouble elevating her legs and both arms appear weak particularly left side. Exam: General: Patient awake lethargic disoriented without any distress CVS: S1 plus S2 without any murmur or gallops Chest: Few scattered crepitation without any wheeze. There is no respiratory distress. Abdomen: Soft non-tender, bowel sound present, no guarding or rebound RESTORATIVE REHAB AIDE: Awake and follows command only partially oriented; bilateral upper and lower extremity weakness 3 over 5 more pronounced the left arm. Both plantars are upgoing. Extremities: 1+ bilateral edema; no clubbing or cyanosis noted Assessment * Suspected stroke * History of fall * Dehydration * History of diabetes * Hypertension * Underlying dementia * Cervical spinal canal stenosis Plan * Proceed with MRI; I would include MRI of the neck as well to rule out spinal cord compression * No need for carotid ultrasound since patient only had CTA * Continue IV fluids * Swallow evaluation * DVT prophylaxis * Restart aspirin which can be given as a suppository * PT evaluation Current Medications Sig/Min Start time Last Medication Dose Route Stop Time Status Admin Acetaminophen 650 MG Q6P PRN 03/03 2245 AC PO Aspirin 325 MG ONCE ONE 03/03 2145 DC PO 03/03 214 Atorvastatin Calcium 40 MG 1700 03/04 1700 AC PO Heparin Sodium 5,000 UNIT Q8 03/04 0600 AC 03/04 (Porcine) [place] 0545 Ondansetron HCl 0 .STK-MED ONE 03/03 2107 DC .ROUTE Ondansetron HCl 4 MG ONCE ONE 03/03 2100 DC 03/03 IV 03/03 2101 2108 Sodium Chloride 1,000 ML Q13H 03/04 0100 AC 03/04 IV 0159 Sodium Chloride 1,000 ML BOLUS ONE 03/03 2100 DC 03/03 IV 03/03 2159 2108 Laboratory Tests 03/04/18 0950: Troponin I Pending 03/04/18 0647: Anion Gap 15, Estimated GFR 39 L, BUN/Creatinine Ratio 20.8, Hemoglobin A1c 5.0 , Triglycerides 67, Cholesterol 192, LDL Cholesterol, Calc 91, HDL Cholesterol 88 H, Cholesterol/HDL Ratio 2, CBC w Diff NO MAN DIFF REQ, RBC 3.05 L, MCV 87.8, MCH 30.3, MCHC 34.5, RDW 16.1 H, MPV 8.9, Gran % 69.9, Lymphocytes % 10.6 L, Monocytes % 17.9 H, Eosinophils % 1.4, Basophils % 0.2, Absolute Granulocytes 4.1, Absolute Lymphocytes 0.6 L, Absolute Monocytes 1.0 H, Absolute Eosinophils 0.1, Absolute Basophils 0 03/04/18 0302: Troponin I 0.02 03/03/18 2110: Urine Color YEL, Urine Clarity CLEAR, Urine pH 8.0, Ur Specific [place] 1.025, Urine Protein 100 H, Urine Ketones NEG, Urine Nitrite NEG, Urine Bilirubin NEG, Urine Urobilinogen 0.2, Ur Leukocyte Esterase NEG, Ur Microscopic SEDIMENT EXAMINED, Urine RBC 3-5, Urine WBC RARE, Ur Epithelial Cells FEW, Urine Mucus RARE, Urine Hemoglobin MOD H, Urine Glucose NEG 03/03/18 1919: Anion Gap 16, Estimated GFR 48 L, BUN/Creatinine Ratio 27.3 H, Glucose 111 H, Calcium 9.9, Total Bilirubin 0.8, AST 33, ALT 28, Alkaline Phosphatase 88, Creatine Kinase 295 H, Troponin I < 0.01, Total Protein 9.3 H, Albumin 5.0, Globulin 4.3 H, Albumin/Globulin Ratio 1.2, PT 12.0, INR 1.10, APTT 27, CBC w Diff NO MAN DIFF REQ, RBC 3.66 L, MCV 87.8, MCH 29.5, MCHC 33.6, RDW 16.6 H, MPV 8.5, Gran % 74.1, Lymphocytes % 11.3 L, Monocytes % 13.0 H, Eosinophils % 1.3, Basophils % 0.3, Absolute Granulocytes 3.3, Absolute Lymphocytes 0.5 L, Absolute Monocytes 0.6, Absolute Eosinophils 0.1, Absolute Basophils 0 Vital Signs Date Time Temp Pulse Resp B/P B/P Pulse O2 O2 Flow FiO2 Mean Ox Delivery Rate 03/04 0649 98.7 73 20 156/64 93 Room Air 03/03 2308 Room Air 03/03 2245 98.8 61 14 140/70 92 03/03 2217 97.7 58 18 120/70 96 03/03 1859 97.8 56 16 162/74 97 Room Air Intake & Output 03/04 1600 03/04 0800 03/04 0000 Intake Total 300 0 Output Total Balance 300 0 Intake, IV 300 Intake, Oral 0 Patient 153 lb Weight Weight Bed scale Measurement Method Chest x-ray did not show any acute process CTA and C-spine - No acute arterial occlusions and no significant arterial stenoses within the head or neck. - No acute intracranial findings. - Advanced cervical spondylosis. 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 Left-sided uncovertebral joint hypertrophy and hypertrophic facet arthropathy result in severe left-sided bony foraminal stenosis at C5-C6 and C6-C7. There is also severe right-sided bony foraminal stenosis at C3-C4, C4-C5 and C6-C7.
--- NOTE | 2018-03-04 10:34 | Cons- Wound Care ---
General Information and HPI Consulting Request Date of Consult: 03/04/18 Requested By: Mary Ruiz MD Reason for Consult: Traumatic intergluteal fold ulcer present on admission History of Present Illness: Patient is an 83-year-old woman admitted after unwitnessed fall thought to have CVA and was found to have evidence of trauma in the intergluteal fold present on admission. 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 Home Services at Home: Home Health Aide Smoking Status: Never Smoked Exam & Diagnostic Data Vital Signs and I&O Vital Signs Result Date Time Pulse Ox 93 03/04 0649 B/P 156/64 03/04 0649 O2 Delivery Room Air 03/04 0649 Temp 98.7 03/04 0649 Pulse 73 03/04 0649 Resp 20 03/04 0649 Intake & Output 03/04 0000 03/03 1600 03/03 0800 Intake Total 0 Output Total Balance 0 Intake, Oral 0 Patient 153 lb Weight Weight Bed scale Measurement Method Physical Exam: Exam of the intergluteal fold shows there to be an area of tissue injury measuring approximately 11 x 0.8 cm there is no undermining sinus tracking or exposed bone. The wound appears to be superficial Assessment/Plan Impression/Plan: 83-year-old woman with unwitnessed fall suspected CVA and found to have an area of tissue injury in the intergluteal fold which appears superficial . Recommend Offloading to the extent possible and use of a protective barrier cream Consult Acknowledgment - Thank you for your consult request.
--- NOTE | 2018-03-04 13:03 | Cons- Neurology ---
General Information and HPI Consulting Request Date of Consult: 03/04/18 Requested By: Mary Ruiz MD History of Present Illness: 83-year-old female with known cervical DJD admitted last p.m. after an unwitnessed fall. Family was nearby and discovered the patient on the floor. There was mild, reported blunt head trauma as manifest by a "small bump on the back of her head" however there was no clear loss of consciousness. The patient was unable to state why she fell however her balance is known to be imperfect and she has had prior falls in the past. Chart reflects some question of left- sided weakness however CT scan of the brain showed no acute abnormalities. Her son also felt that she seemed to be somewhat drowsy after the event and she was brought to [facility] for further evaluation. Per family, she is typically intact from a cognitive standpoint and is independent with most activities of daily living. Allergies/Medications Allergies: Coded Allergies: Penicillins (Severe, RASH 03/03/18) Home Med List: Clonazepam 0.5 MG TABLET 1 TAB PO DAILY NEEDED anxiety (Reported) Review of Systems Review of Systems: Positive for dry mouth, imbalance and neck discomfort. 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 Home Services at Home: Home Health Aide Smoking Status: Never Smoked Exam & Diagnostic Data Vital Signs and I&O Vital Signs Date Time Temp Pulse Resp B/P B/P Pulse O2 O2 Flow FiO2 Mean Ox Delivery Rate 03/04 0649 98.7 73 20 156/64 93 Room Air 03/03 2308 Room Air 03/03 2245 98.8 61 14 140/70 92 03/03 2217 97.7 58 18 120/70 96 03/03 1859 97.8 56 16 162/74 97 Room Air Intake & Output 03/04 1600 03/04 0800 03/04 0000 Intake Total 300 0 Output Total Balance 300 0 Intake, IV 300 Intake, Oral 0 Patient 153 lb Weight Weight Bed scale Measurement Method Elderly female in no acute distress. She was awake, alert and cooperative. She was oriented to person place and time. She knew the name of the current Pres. Speech was fluent. The head was normocephalic. Pupils were equal. Extraocular movements were full. There was no nystagmus. Face was symmetric. Tongue was midline; there was no dysarthria. The motor examination showed no drift the upper extremities. There was no gross lateralizing weakness. Deep tendon reflexes were hypoactive. Plantar responses were equivocal. Christo sign was absent bilaterally. There was no ataxia on [id number] testing. Joint position sense was intact. The gait was not evaluated. CAT scan of the head on admission showed no acute abnormalities. CT scan of the cervical spine showed significant multilevel DJD Assessment/Plan Assessment: #1 unwitnessed fall without loss of consciousness #2 mild, blunt head trauma #3 multilevel cervical DJD #4 chronic disequilibrium with propensity towards falls At present, her examination shows no focal abnormalities or lateralizing weakness. Suspicion for stroke syndrome is quite low. Recommendations: The patient has been scheduled for MRI. At present, we would endorse occupational therapy and physical therapy to help reestablish her baseline locomotion and activities of daily living. DVT precautions should be put in place until she is once again up and around. Please call with any questions Consult Acknowledgment - Thank you for your consult request.
--- NOTE | 2018-03-04 13:06 | MRI REPORT ---
MR BRAIN WITHOUT CONTRAST MR CERVICAL SPINE WITHOUT CONTRAST CLINICAL INFORMATION: Incoherent, confused, and slow. TIA/stroke. COMPARISON: CTA head and neck and cervical spine CT performed TECHNIQUE: MRI of the brain and cervical spine are contrast was obtained using routine sequences. FINDINGS: BRAIN MRI: There is no hydrocephalus, extra-axial surface collection, or herniation. There are T2 signal changes throughout the supratentorial white matter and central kosta, most likely moderate chronic microangiopathy. The major flow voids at the skull base are preserved. There is no acute infarct on diffusion-weighted imaging. There is no intracranial hemorrhage on the gradient recalled echo acquisition. The midline structures are normal. The cerebellar tonsils are normally positioned. The cerebellum and brainstem are normal. The craniocervical junction is normal. Osseous marrow signal intensity is homogenous. The visualized soft tissues are unremarkable. CERVICAL SPINE MRI: There is prevertebral/retropharyngeal edema extending from the C2 level through the imaged upper thoracic spine. Suspected disc contiguity of the anterior longitudinal ligament at C6-C7. Possible fracture through an anterior bridging osteophyte at C6-C7 that is better demonstrated on MRI. There is fluid signal within the intervertebral disc at C6-C7 which could indicate traumatic disc injury. The posterior longitudinal ligament and ligamentum flavum appear intact. There is interspinous ligamentous injury at C5-C6. Craniocervical junction is intact. There are edema within the right C3 and C4 facets is most likely inflammatory. Mild degenerative appearing anterior subluxation of C7 on T1. Right-sided facet fusion at the C3-C5 levels. C2-C3: Disc contour is normal. No central canal stenosis and no foraminal stenosis. C3-C4: Severe right-sided hypertrophic facet arthropathy along with uncovertebral joint spurring results in severe right foraminal stenosis. Uncovertebral joint spurring results in mild left foraminal narrowing. Central canal remains patent. C4-C5: Disc osteophyte complex mildly indents the ventral thecal sac without central canal stenosis. Bilateral uncovertebral joint spurring and hypertrophic facet arthropathy resulting in moderate right-sided foraminal stenosis. C5-C6: Disc osteophyte complex that is eccentric to the left side and ossification of the posterior longitudinal ligament on the left results in moderate to severe central canal stenosis on the left and flattening of the ventral cord. Left greater than right uncovertebral joint hypertrophy and hypertrophic facet arthropathy with severe left and mild right foraminal stenosis. C6-C7: Traumatic findings as discussed above. Anteriorly extruded disc material on the left side. There is a diffuse disc osteophyte complex that is eccentric to the left side and there is ossification of the posterior longitudinal ligament on the left resulting in mass effect on the cord and moderate to severe left-sided central canal stenosis. Uncovertebral joint spurring and hypertrophic facet arthropathy result in severe bilateral foraminal stenosis. C7-T1: Mild anterior subluxation the setting of bilateral hypertrophic facet arthropathy. No central canal stenosis and no foraminal stenosis. IMPRESSION: - There is prevertebral/retropharyngeal soft tissue edema extending from the C2 level through the imaged upper thoracic spine that is most likely posttraumatic in the absence of clinical signs of infection. Suspected disruption of the anterior longitudinal ligament and intervertebral disc traumatic injury at C6-C7 with mild widening of the anterior disc space and anteriorly extruding disc material. The posterior longitudinal ligament and ligamentum flavum appear intact. There is interspinous ligamentous injury at C5-C6. Possible fracture through an anterior bridging osteophyte at C6-C7 that is better demonstrated on MRI. - Ossification of the posterior longitudinal ligament and multifactorial degenerative changes result in moderate to severe left-sided central canal stenosis and mass effect on the cervical cord at the C5-C6 and C6-C7 levels. Nondiagnostic assessment for cord signal changes given the degree of artifact. Varying degrees of moderate to severe foraminal stenosis throughout the cervical spine as discussed above. - No acute intracranial findings. No acute infarcts. There is moderate chronic microangiopathy throughout the supratentorial white matter and kosta. The covering provider has been paged with these findings at 12:56 PM on 03/04/2018.
[2018-03-04] MEDS ORDERED: SERTRALINE HCL50 MG PO (13:56)
[2018-03-04] MEDS ORDERED: METOPROLOL TART50 M1 PO (13:57)
[2018-03-04] MEDS ORDERED: DEXILANT60 M1 PO (13:59)
[2018-03-04 14:00] VITALS: BP 156/62
--- NOTE | 2018-03-04 14:32 | RADIOLOGY REPORT ---
EXAMINATION: XR LUMBOSACRAL SPINE XR PELVIS CLINICAL INFORMATION: History of fall, trauma. Abrasion, pain of lower back. COMPARISON: None TECHNIQUE: Two frontal views of the pelvis and frontal, lateral view of the lumbosacral spine were obtained. FINDINGS: LUMBOSACRAL SPINE: The height of the lumbar vertebrae are well maintained. Decreased disc height, endplate osteophyte formations, consistent with multilevel moderate degenerative spondylosis-related changes are noted within the lumbar spine. Grade 1 anterolisthesis of L4 over L5 is noted. Incidental note is made of right-sided iliolumbar ligament ossification. Note is also made of contrast-filled urinary bladder likely from intravenous contrast injected at the time of the prior CT angiogram of the neck and brain. PELVIS: The bony alignment is intact. The cortices are intact. The soft tissues are unremarkable. IMPRESSION: 1. No radiographic evidence of any vertebral body fracture identified. 2. Grade 1 anterolisthesis of L4 over L5 vertebral body and multilevel degenerative spondylosis-related changes are present. 3. No radiographic evidence of any displaced pelvic fracture.
[2018-03-04 22:32] VITALS: BP 162/70
[2018-03-05 05:40] VITALS: BP 200/76
[2018-03-05 06:53] VITALS: BP 160/70
--- NOTE | 2018-03-05 07:12 | PN- Housestaff ---
Shreya QUINTEROS,Han 03/05/18 0712: Subjective Follow-up For: Fall with cervical spine fracture Tele-Events Since Last Visit: Sinus rhythm heart rate 50s70s Subjective: Patient was seen and examined at bedside. She was resting comfortably. She had no acute events overnight. She reports significant improvement in her neck pain since being put in a hard collar. She denies any difficulty swallowing, choking sensation or coughing while swallowing. She is still complaining of mild back pain with motion. She denies any chest pain, palpitations, headaches, shortness of breath, numbness, tingling, weakness. Review of Systems Constitutional: Denies: chills, fever, malaise. EENTM: Reports: no symptoms. Cardiovascular: Reports: no symptoms. Respiratory: Reports: no symptoms. Gastrointestinal: Reports: no symptoms. Genitourinary: Reports: no symptoms. Musculoskeletal: Reports: back pain. Objective Last 24 Hrs of Vital Signs/I&O Vital Signs Date Time Temp Pulse Resp B/P B/P Pulse O2 O2 Flow FiO2 Mean Ox Delivery Rate 03/05 0653 160/70 03/05 0545 59 200/80 03/05 0540 98.4 65 20 200/76 92 Room Air 03/04 2232 98.5 63 18 162/70 92 Room Air 03/04 2222 Room Air 03/04 2128 64 162/70 03/04 1530 64 156/62 03/04 1400 97.6 62 18 156/62 94 Intake & Output 03/05 0800 03/05 0000 03/04 1600 Intake Total 240 540 630 Output Total Balance 240 540 630 Intake, IV 450 Intake, Oral 240 540 180 Patient 154 lb Weight Physical Exam General Appearance: Alert, Cooperative, No Acute Distress, oriented to person and place but not time, patient is much more alert and responsive compared to yesterday. Neck: hard cervical collar in place Cardiovascular: Regular Rate, Normal S1, Normal S2 Lungs: Clear to Auscultation, Normal Air Movement Abdomen: Normal Bowel Sounds, Soft, No Tenderness Neurological: Normal Speech, Normal Tone, Sensation Intact, RLE strength 4/5 patient has chronic weakness/pain in that leg. rest of exremities 5/5 Extremities: No Clubbing, No Cyanosis, No Edema Current Medications: Current Medications Sig/Min Start time Last Medication Dose Route Stop Time Status Admin Acetaminophen 650 MG Q6P PRN 03/03 2245 AC PO Aspirin 81 MG DAILY 03/04 1151 AC 03/04 PO 1529 Atorvastatin Calcium 40 MG 1700 03/04 1700 AC 03/04 PO 1735 Clonazepam 0.5 MG DAILY NEEDED 03/04 1400 AC 03/04 PO 03/11 1359 2128 Heparin Sodium 5,000 UNIT Q8 03/04 0600 AC 03/05 (Porcine) SC 0530 Melatonin 5 MG AT BEDTIME 03/04 2100 AC 03/04 PO 2128 Metoprolol Tartrate 50 MG BID 03/04 1357 AC 03/05 PO 0545 Omeprazole 40 MG DAILY AC 03/04 1401 AC 03/05 PO 0531 Sertraline HCl 50 MG DAILY 03/04 1357 AC 03/04 PO 1530 Sodium Chloride 1,000 ML Q13H 03/04 0100 DC 03/04 IV 0159 Last 24 Hrs of Lab/Zachery Results Last 24 Hrs of Labs/Mics: Laboratory Tests 03/05/18 0612: Sodium Pending, Potassium Pending, Chloride Pending, Carbon Dioxide Pending, Anion Gap Pending, BUN Pending, Creatinine Pending, BUN/Creatinine Ratio Pending , CBC w Diff Pending, WBC Pending, RBC Pending, Hgb Pending, Hct Pending, MCV Pending, MCH Pending, MCHC Pending, RDW Pending, Plt Count Pending, MPV Pending 03/04/18 0950: Troponin I 0.02 Orders ECHO Findings: Left Ventricle Mild concentric LVH, no wall motion abnormalities. LVEF estimated at 60%. Diastolic dysfunction without evidence of restrictive physiology. Right Ventricle Normal size and function. Right Atrium Normal size. Left Atrium Normal left atrial size. Mitral Valve Mitral annulus calcification. Trace MR. Aortic Valve Tricuspid aortic valve. Mild AR. Tricuspid Valve mild TR. RVSP estimated at 40mmHg. Pulmonic Valve Structurally normal pulmonic valve. Trace PI. Pericardium no pericardial effusion. Great Vessels Normal aortic root dimension. CONCLUSIONS Mild concentric LVH, no wall motion abnormalities. LVEF estimated at 60%. Diastolic dysfunction without evidence of restrictive physiology. Normal left atrial size. Mitral annulus calcification. Trace MR. Tricuspid aortic valve. Mild TR. RVSP estimated at 40mmHg. No pericardial effusion. Normal aortic root dimension. Assessment/Plan Assessment: Patient is an 83-year-old female with PMH significant for HTN, HLD, diabetes not currently medically managed, urinary incontinence, osteoarthritis, ankylosing spondylitis who was brought in [facility] in ED by ambulance after suffering an unwitnessed fall. On presentation she had left upper extremity weakness. #Unwitnessed fall with C6C7 osteophyte fracture Patient is much more alert and responsive today, she was mildly lethargic yesterday however this is improved. She reports reduced neck pain with cervical collar in place -echo shows normal LVEF with mild pulmonary htn -Continue with cervical collar for total of 68 weeks - Follow-up repeat swallow evaluation today -Physical therapy and occupational therapy are recommending short-term rehabilitation -Neurology was consulted and have low suspicion for a stroke and MRI shows no evidence of infarct -Continue aspirin, statin -follow-up echo #hypertension elevated BP overnight -added nifedipine 30 mg daily, will discharge pt on this new regimen # mild hypokalemia repleted orally #Anemia Small drop in H/H, has reamained stable #Superficial wounds on the lower back/gluteal cleft Wound care consult obtained -Offload as much as possible -Treat with barrier cream #SEERNE, improving patient is eating and drinking well, will encourage adequate PO intake #Chronic medical problems including anxiety, DM, and hypertension -Continue home medications -HgbA1c 5.0 Diet: Heart healthy mechanical soft and thin liquids DVT prophylaxis: Subcutaneous heparin, pounds CODE STATUS: Full code Problem List: 1. TIA (transient ischemic attack) 2. Cervical spine fracture Pain Ratin Pain Location: back Pain Goal: Pain 4 or less Pain Plan: pain pathway Tomorrow's Labs & Rationales: none Mary Ruiz MD 03/05/18 1306: Attending MD Review Statement Attending Statement Attending MD Statement: examined this patient, discuss w/resident/PA/TECHNICAL ACCOUNT REPRESENTATIVE, agreed w/resident/PA/TECHNICAL ACCOUNT REPRESENTATIVE, reviewed EMR data (avail) Attending Assessment/Plan: Patient doing well today. BP uncontrolled overnight. Will continue current management, add Nifedipine, will require rehab. Patient doing well today. BP uncontrolled overnight. Will continue current management, add Nifedipine, will require rehab.
--- NOTE | 2018-03-05 07:17 | Discharge Summary ---
See Addendum Visit Information Visit Dates Admission Date: 03/03/18 Discharge Date: 03/05/18 Hospital Course Course Attending Physician: Mary Ruiz MD Primary Care Physician: Panchito Pinto MD Consulting Request: Consulting Specialty: Neurology Hospital Course: 83-year-old woman with past medical history of hypertension, hyperlipidemia, urinary incontinence, arthritis, ankylosing spondylitis, and non-insulin- dependent diabetes mellitus brought in by ambulance after having an unwitnessed fall. Patient was obtunded due to drowsiness and confusion at time of admission. History was obtained from the patient's son whom she lives with. Patient reportedly suffered an unwitnessed fall around 2 PM the day of admission. Patient did not recall the details of the event. The fall was heard by the home health aide whom went to check on the patient and found her on the ground between 2 closet doors. Patient reports having her head but did not lose consciousness or control of her bowels/bladder. Patient reported neck pain after the event and was moved to the couch. Her son saw the patient around 4:30 PM and noted that she was below her baseline and slowly responding to questions. For further evaluation of these symptoms patient was brought to the [place] ED. ED course -Vital signs: Temp 97.7-98.8, HR 56-61, RR 14-18, SBP 140-162, O2 92-97% on room air -CBC: WBC 4.4, hemoglobin 10.8, hematocrit 32.1, platelet 139 -BMP: Sodium 142, potassium 4.3, chloride 98, CO2 28, urea 30, creatinine 1.1, anion gap 16, glucose 111 -LFTs: Total bilirubin 0.8, AST 33, ALT 28, ALP 88 -Miscellaneous: CPK 295, troponin I <0.01 -CXR:No evidence of acute disease. -CT head/C-spine without IV contrast: * Head CT: Age-related changes but no acute abnormality seen. No intracranial hemorrhage or obvious territorial infarction. * C-spine: Extensive multilevel degenerative changes but no acute fracture or spondylolisthesis. -CTA head/neck with IV contrast: * No acute arterial occlusions and no significant arterial stenoses within the head or neck. * No acute intracranial findings. * Advanced cervical spondylosis. 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 Left-sided uncovertebral joint hypertrophy and hypertrophic facet arthropathy result in severe left-sided bony foraminal stenosis at C5-C6 and C6-C7. There is also severe right-sided bony foraminal stenosis at C3-C4, C4-C5 and C6-C7. Problem list on admission -Probable CVA -Mechanical fall -Dehydration -Blunt head trauma -Multilevel cervical degenerative joint disease Hospital course Patient was admitted to the telemetry floor. Serial troponin/EKG were obtained which were unremarkable. Neurology consult was placed whom felt given her physical examination suspicion for stroke was low. MRI brain and cervical spine demonstrated the following findings: - There is prevertebral/retropharyngeal soft tissue edema extending from the C2 level through the imaged upper thoracic spine that is most likely posttraumatic in the absence of clinical signs of infection. Suspected disruption of the anterior longitudinal ligament and intervertebral disc traumatic injury at C6-C7 with mild widening of the anterior disc space and anteriorly extruding disc material. The posterior longitudinal ligament and ligamentum flavum appear intact. There is interspinous ligamentous injury at C5-C6. Possible fracture through an anterior bridging osteophyte at C6-C7 that is better demonstrated on MRI. - Ossification of the posterior longitudinal ligament and multifactorial degenerative changes result in moderate to severe left-sided central canal stenosis and mass effect on the cervical cord at the C5-C6 and C6-C7 levels. Nondiagnostic assessment for cord signal changes given the degree of artifact. Varying degrees of moderate to severe foraminal stenosis throughout the cervical spine as discussed above. - No acute intracranial findings. No acute infarcts. There is moderate chronic microangiopathy throughout the supratentorial white matter and kosta. These findings were discussed with neurosurgeon Dr. Castillo whom recommended immobilization with a hard cervical collar and outpatient evaluation. Pelvis and lumbar spine x-ray were obtained due to a small abrasion noted on patient's back to assess for trauma which did not identify any acute findings. Echocardiogram demonstrated an LVEF of 60% with diastolic dysfunction. Physical therapy evaluated the patient whom recommended discharge back to her previous ECF facility. Patients blood pressure was persistenting high for which long acting nifedipine was added. Allergies: Coded Allergies: Penicillins (Severe, RASH 03/03/18) Significant Procedures: SERVICE DATE: 03/04/18- EXAM TYPE: RAD - XRY-AP PELVIS; XRY-LUMBAR SPINE ONE VIEW 1. No radiographic evidence of any vertebral body fracture identified. 2. Grade 1 anterolisthesis of L4 over L5 vertebral body and multilevel degenerative spondylosis-related changes are present. 3. No radiographic evidence of any displaced pelvic fracture. SERVICE DATE: 03/04/18- EXAM TYPE: MRI - MRI-CERVICAL SPINE; MRI-HEAD W/O ELIAS - There is prevertebral/retropharyngeal soft tissue edema extending from the C2 level through the imaged upper thoracic spine that is most likely posttraumatic in the absence of clinical signs of infection. Suspected disruption of the anterior longitudinal ligament and intervertebral disc traumatic injury at C6-C7 with mild widening of the anterior disc space and anteriorly extruding disc material. The posterior longitudinal ligament and ligamentum flavum appear intact. There is interspinous ligamentous injury at C5-C6. Possible fracture through an anterior bridging osteophyte at C6-C7 that is better demonstrated on MRI. - Ossification of the posterior longitudinal ligament and multifactorial degenerative changes result in moderate to severe left-sided central canal stenosis and mass effect on the cervical cord at the C5-C6 and C6-C7 levels. Nondiagnostic assessment for cord signal changes given the degree of artifact. Varying degrees of moderate to severe foraminal stenosis throughout the cervical spine as discussed above. - No acute intracranial findings. No acute infarcts. There is moderate chronic microangiopathy throughout the supratentorial white matter and kosta. SERVICE DATE: 03/03/18 EXAM TYPE: RAD - XRY-PORTABLE CHEST XRAY IMPRESSION: No evidence of acute disease. SERVICE DATE: 03/03/18 EXAM TYPE: CAT - CT HEAD ANGIOGRAM; CT NECK ANGIOGRAM IMPRESSION: - No acute arterial occlusions and no significant arterial stenoses within the head or neck. - No acute intracranial findings. - Advanced cervical spondylosis. 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 Left-sided uncovertebral joint hypertrophy and hypertrophic facet arthropathy result in severe left-sided bony foraminal stenosis at C5-C6 and C6-C7. There is also severe right-sided bony foraminal stenosis at C3-C4, C4-C5 and C6-C7. SERVICE DATE: 03/03/18 EXAM TYPE: CAT - CT CERV SPINE WO IV CONTRAST; CT HEAD WO IV CONTRAST IMPRESSION: Head CT: Age-related changes but no acute abnormality seen. No intracranial hemorrhage or obvious territorial infarction. C-spine: Extensive multilevel degenerative changes but no acute fracture or spondylolisthesis. Disposition Summary Disposition Principal Diagnosis: Mechanical fall Dehydration Additional Diagnosis: Blunt head trauma with degenerative cervical spine disease Discharge Disposition: SNF Discharge Instructions General Discharge Information Code Status: Full Code Patient's Diet: Heart healthy diet Patient's Activity: Per physical therapy assessment Follow-Up Instructions/Appts: Please follow-up with Dr. Mccarty to establish primary care, we have provided you with a referral. Take all medications as directed. Call your doctor or return to the ER if you experience any weakness, numbness, facial droop, difficulty speaking, or tingling Follow-up with a neurosurgeon after discharge for further evaluation of your neck. Medications at Discharge Discharge Medications: Continue taking these medications: Clonazepam (Clonazepam) 0.5 MG TABLET 1 Tablet ORAL DAILY NEEDED Comments: Last Taken: 03/04/18 Time:9 PM Sertraline HCl (Sertraline HCl) 50 MG TABLET 1 Tablet ORAL DAILY Comments: Last Taken: 03/04/18 Time: 3:30 PM Metoprolol Tartrate (Metoprolol Tartrate) 50 MG TABLET 1 Tablet ORAL TWICE DAILY Comments: Last Taken: 03/05/18 Time:6 AM Dexlansoprazole (Dexilant) 60 MG BP 1 Capsule ORAL DAILY Start taking the following new medications: Atorvastatin Calcium (Atorvastatin Calcium) 40 MG TABLET 40 Milligram ORAL 5 PM Qty = 30 No Refills Comments: Last Taken: 03/04/18 Time:5:30 PM Aspirin (Aspirin*) 81 MG TAB.CHEW 81 Milligram ORAL DAILY Qty = 30 No Refills Comments: Last Taken: 03/05/18 Time: 10:15AM Copies To: Jonnie QUINTEROS,Rafael Mojica; Anna QUINTEROS,Magaly Johnson; Panchito Pinto MD
[2018-03-05] MEDS ORDERED: ATORVASTATIN CA40 M1 PO (07:36)
[2018-03-05] MEDS ORDERED: ASPIRIN81 M4 PO (07:36)
--- NOTE | 2018-03-05 07:42 | Patient Discharge Instructions ---
Discharge Instructions General Discharge Information You were seen/treated for: Cervical spine fracture wound on lower back/gluteal cleft Special Instructions: Please follow-up with Dr. Mccarty to establish primary care, we have provided you with a referral. Follow-up with [facility] within 1 week for monitoring and repeat imaging of your neck. Their phone number is [phone]. Apply barrier cream to the wound on the lower back/gluteal cleft. If possible obtain an [place] Cervical Collar for neck immobilization. For now, should be on pureed solids and thin liquid diet. Can be reassessed as tolerated at SNF. All meds that can be crushed should be crushed. Take all medications as directed. Call your doctor or return to the ER if you experience any weakness, numbness, facial droop, difficulty speaking, or tingling. Diet Recommended Diet: Heart Healthy Additional DIET Information: Pureed solids, thin liquids Acute Coronary Syndrome Inclusion Criteria At DC or during hospital stay patient has or had the following: ACS DIAGNOSIS No Discharge Core Measures Meds if any: Prescribed or Continued at Discharge Meds if any: NOT Prescribed or Continued at Discharge Congestive Heart Failure Inclusion Criteria At DC or during hospital stay patient has or had the following: CHF DIAGNOSIS No Discharge Core Measures Meds if any: Prescribed or Continued at Discharge Meds if any: NOT Prescribed or Continued at Discharge Cerebrovascular accident Inclusion Criteria At DC or during hospital stay patient has or had the following: CVA/TIA Diagnosis Yes Discharge Core Measures Meds if any: Prescribed or Continued at Discharge Antithrombotic Yes Statin (required if LDL =>70) Yes Anticoagulant Yes Meds if any: NOT Prescribed or Continued at Discharge Venous thromboembolism Inclusion Criteria VTE Diagnosis No VTE Type NONE VTE Confirmed by (Test) NONE Discharge Core Measures - Per Current guidelines, there needs to be overlap - treatment for the first 5 days of Warfarin therapy. - If discharged on Warfarin prior to 5 days of - overlap therapy, the patient will need to be - assessed for post discharge needs including - *Post discharge parental anticoagulation - *Warfarin and/or parental anticoagulation education - *Follow up date to check INR post discharge At least 5 days overlap therapy as Inpatient No Meds if any: Prescribed or Continued at Discharge Note: Overlap Therapy is Warfarin and Anticoagulant Meds if any: NOT Prescribed or Continued at Discharge
[2018-03-05 08:14] LABS: ABSOLUTE BASOPHIL COUNT 0 /CUMM (0.0-0.2); ABSOLUTE EOSINOPHIL COUNT 0.1 /CUMM (0.0-0.7); ABSOLUTE GRANULOCYTE CT 4.7 /CUMM (1.4-6.5); ABSOLUTE LYMPH COUNT 0.5 /CUMM (1.2-3.4); ABSOLUTE MONOCYTE COUNT 1.3 /CUMM (0.10-0.60); BASOPHIL % 0.1 % (0.0-2.0); EOSINOPHIL % 2.1 % (0-5); GRANULOCYTE % 70.6 % (42.2-75.2); HEMATOCRIT 27.4 % (37-47); MEAN CORPUSCULAR HGB 29.6 PG (27.0-31.0); MEAN CORPUSCULAR HGB CONC 33.9 G/DL (33.0-37.0); MEAN CORPUSCULAR VOLUME 87.6 FL (81.0-99.0); MEAN PLATELET VOLUME 9.1 FL (7.4-10.4); PLATELET COUNT 110 /CUMM (130-400); RBC DISTRIBUTION WIDTH 16.5 % (11.5-14.5); RED BLOOD CELL CT 3.13 /CUMM (4.20-5.40); WHITE BLOOD CELL COUNT 6.7 /CUMM (4.8-10.8)
--- NOTE | 2018-03-05 10:44 | ECHOCARDIOGRAM REPORT ---
LARS ELLIS Age: 83 : 1935 Gender: F Exam Date: 03/04/2018 18:51 Exam Location: [address] Ht (in): 64 Wt (lb): 155 BSA: 1.80 BP: 156 / 64 Ordering Physician: Nicole Gomez MD Referring Physician: Nicole Gomez MD Technologist: Ana Pierce [facility] Room Number: [id number] Indications: TIA Rhythm: Sinus Technical Quality: good FINDINGS Left Ventricle Mild concentric LVH, no wall motion abnormalities. LVEF estimated at 60%. Diastolic dysfunction without evidence of restrictive physiology. Right Ventricle Normal size and function. Right Atrium Normal size. Left Atrium Normal left atrial size. Mitral Valve Mitral annulus calcification. Trace MR. Aortic Valve Tricuspid aortic valve. Mild AR. Tricuspid Valve mild TR. RVSP estimated at 40mmHg. Pulmonic Valve Structurally normal pulmonic valve. Trace PI. Pericardium no pericardial effusion. Great Vessels Normal aortic root dimension. CONCLUSIONS Mild concentric LVH, no wall motion abnormalities. LVEF estimated at 60%. Diastolic dysfunction without evidence of restrictive physiology. Normal left atrial size. Mitral annulus calcification. Trace MR. Tricuspid aortic valve. Mild TR. RVSP estimated at 40mmHg. No pericardial effusion. Normal aortic root dimension. Jami Varela M.D. (Electronically Signed) Final Date: 05 March 2018 10:43 MEASUREMENTS (Male / Female) Normal Values 2D ECHO LV Diastolic Diameter PLAX 4.5 cm 4.2 - 5.9 / 3.9 - 5.3 cm LV Systolic Diameter PLAX 2.9 cm 2.1 - 4.0 cm LV Fractional Shortening PLAX 35.6 % 25 - 46 % LV Ejection Fraction 2D Teich 65.2 % IVS Diastolic Thickness 1.3 cm LVPW Diastolic Thickness 1.3 cm LV Relative Wall Thickness 0.6 RV Internal Dim ED PLAX 3.0 cm 1.9 - 3.8 cm LVOT Diameter 2.1 cm Aortic Root Diameter 2.7 cm LA Systolic Diameter LX 2.8 cm 3.0 - 4.0 / 2.7 - 3.8 cm LA Volume 32.0 cm 18 - 58 / 22 - 52 cm Ascending Aorta Diameter 2.9 cm DOPPLER AV Peak Velocity 164.0 cm/s AV Peak Gradient 10.8 mmHg AV Mean Velocity 119.0 cm/s AV Mean Gradient 6.0 mmHg AV Velocity Time Integral 40.3 cm LVOT Peak Velocity 90.2 cm/s LVOT Peak Gradient 3.3 mmHg LVOT Mean Velocity 64.4 cm/s LVOT Mean Gradient 2.0 mmHg LVOT Velocity Time Integral 23.1 cm LVOT Stroke Volume 80.0 cm AV Area Cont Eq vti 2.0 cm AV Area Cont Eq pk 1.9 cm MV Peak Velocity 112.0 cm/s MV Peak Gradient 5.0 mmHg MV Mean Velocity 69.6 cm/s MV Mean Gradient 2.0 mmHg Mitral E Point Velocity 89.3 cm/s Mitral A Point Velocity 90.3 cm/s Mitral E to A Ratio 1.0 MV PHT Velocity 123.0 cm/s MV Deceleration Glacier 411.0 cm/s MV Pressure Half Time 89.8 ms MV Area PHT 2.5 cm MV Deceleration Time 225.0 ms TR Peak Velocity 316.0 cm/s TR Peak Gradient 39.9 mmHg Right Atrial Pressure 5.0 mmHg Pulmonary Artery Systolic Pressu 44.9 mmHg Right Ventricular Systolic Press 44.9 mmHg PV Peak Velocity 124.0 cm/s PV Peak Gradient 6.2 mmHg PV Mean Velocity 77.6 cm/s PV Mean Gradient 3.0 mmHg PV Velocity Time Integral 27.0 cm LV E' Lateral Velocity 7.3 cm/s Mitral E to LV E' Lateral Ratio 12.2 LV E' Septal Velocity 5.5 cm/s Mitral E to LV E' Septal Ratio 16.4
[2018-03-05] MEDS ORDERED: NIFEDIPINE ER30 M2 PO (12:52)
[2018-03-05 14:10] VITALS: BP 138/70
[2018-03-05 16:25] VITALS: BP 160/70
== END 2018-03-05 17:45 | DRG 641 ==
LOC: ERH 18:54 → ERHI 21:44 → 1NO 21:44 → ENRESERV 22:03 → ENTRNSPT 22:21 → EDTRNSPTSTS 22:28 → EDTRNSPT 22:28 → 1NO 22:29 → CMPTRNSPT 22:42 → 1NO 03-04 07:35 → ENPENDDIS 03-05 10:45 → 1NO 03-05 17:45
PROVIDERS: Dermatology; Physician Assistant Medical; Student in an Organized Health Care Education/Training Program
DX: E86.0 Dehydration (principal); N17.9 Acute kidney failure, unspecified; S12.500A Unspecified displaced fracture of sixth cervical vertebra, initial encounter for closed fracture; S09.90XA Unspecified injury of head, initial encounter; S12.600A Unspecified displaced fracture of seventh cervical vertebra, initial encounter for closed fracture; I10 Essential (primary) hypertension; E78.5 Hyperlipidemia, unspecified; K21.9 Gastro-esophageal reflux disease without esophagitis; E11.9 Type 2 diabetes mellitus without complications; S31.801A Laceration without foreign body of unspecified buttock, initial encounter; W18.30XA Fall on same level, unspecified, initial encounter; Y92.013 Bedroom of single-family (private) house as the place of occurrence of the external cause; M47.892 Other spondylosis, cervical region; R32 Unspecified urinary incontinence; Z88.0 Allergy status to penicillin; S30.91XA Unspecified superficial injury of lower back and pelvis, initial encounter; E87.6 Hypokalemia
CPT/HCPCS: 1NP; 70551; 72141; 36415; 36592; 71045; 72020; 72170; 81001; 82436; 93005; 93010; 93306; 96374; 97110-GO; 97161-GP; 97165-GO; 97530-GO; G8978-GP; G8979-GP; G8987-GO; G8988-GO; G8996-GN; G8997-GN; G8998-GN; J1644; J2405; J3490